=== PATIENT | female | born 1980 ===

== ENCOUNTER 2020-08-13 10:47 | Inpatient (IN) | payer MEDICAID, SELFPAY ==
[2020-08-13 10:50] VITALS: BP 135/67; PULSE 132; RESP 20; TEMP 37.1; O2SAT 99; BMI 33.3
--- NOTE | 2020-08-13 11:14 | ED_ITS ---
HPI - Psych General: Chief Complaint: Psychiatric Symptoms Stated Complaint: PSYCH EVAL Time Seen by Provider: 08/13/20 10:49 History of Present Illness: HPI Narrative: Patient is a 40-year-old female who comes to the ED for Covid screening and is going to be a direct admit to NPU. Patient said she has no current upper respiratory symptoms. She denies being around any known Covid positive patient. She denies any fever, shortness of breath, abdominal pain, nausea/vomiting, bladder or bowel symptoms sore throat, ear pain, nasal congestion or drainage, acute cough. Patient says she is a smoker and does have a chronic cough but denies any change in it and and its nonproductive. Review of Systems Const: Denies: fever(s), chills or fatigue Eyes: Denies: change in vision or eye discomfort ENMT: Denies: throat pain, odynophagia, nasal discharge or nasal congestion Card: Denies: chest pain, palpitations, edema, swelling of feet/ankles, dyspnea on exertion or orthopnea Resp: Reports: non-productive cough (chronic smokers cough); Denies: dyspnea or productive cough GI: Denies: abdominal pain, nausea, vomiting, diarrhea, constipation or hematochezia : Denies: flank pain, dysuria or hematuria Musc: Denies: neck pain, back pain or extremity swelling Skin/Breast: Denies: rash or new lesions Neuro: Denies: headache(s), numbness in extremities or weakness in extremities [facility] ED Female Reproductive History: Date of last menstrual period: 08/06/20 Physical Exam Const: COMMON NORMALS: no acute distress, patient oriented x3 and alert GENERAL APPEARANCE: cooperative and comfortable HENMT: COMMON NORMALS: normocephalic HEAD & SCALP: normocephalic MOUTH: Normal oral and palatal mucosa present THROAT: posterior oropharynx normal and uvula midline Neck/C-Spine: COMMON NORMALS: supple GENERAL: Yes normal visual inspection Resp: COMMON NORMALS: normal respiratory effort, No retractions, No use of accessory muscles and clear to auscultation bilaterally EFFORT & INSPECTION: Yes able to speak in complete sentences, No tachypneic, No respiratory distress and No labored AUSCULTATION: clear to auscultation bilaterally Cardio: COMMON NORMALS: regular rate, regular rhythm, S1 normal heart sound present, S2 normal heart sound present, No gallops present (Cardio), No clicks present (Cardio), No murmurs present (Cardio) and Peripheral pulses 2+ throughout RATE: regular rate RHYTHM: regular rhythm HEART SOUNDS: S1 normal heart sound present and S2 normal heart sound present PERIPHERAL PULSES: Peripheral pulses 2+ throughout GI: COMMON NORMALS: Normal to inspection, nondistended, normoactive bowel sounds present, Soft to palpation, non-tender and no masses PALPATION: Yes Soft to palpation : COMMON NORMALS: Yes no CVA tenderness BLADDER/KIDNEY EXAM: Yes no CVA tenderness Back/Pelvis: COMMON NORMALS: no CVA tenderness Extremity: COMMON NORMALS: normal to inspection and no pedal edema Neuro: COMMON NORMALS: patient oriented x3 and moves all extremities SENSORIUM/ORIENTATION: Yes alert Psych: ACTIVITY/MOTOR BEHAVIOR: Yes appropriate eye contact, Yes fidgeting and Yes hyperactivity Skin: GENERAL SKIN EXAM: dry skin MDM - Psych MDM Narrative: Medical decision making narrative: Patient is a 40-year-old female that comes to the ED via EMS as direct admit to NPU. Patient was brought in here to the ED to screen for COVID-19. Patient has had no exposure to known positive COVID-19 patient. She has no upper respiratory symptoms such as fever, chills, sore throat, nasal congestion/drainage acute cough or shortness of breath. Patient appears in good health and is showing no signs of any respiratory distress. Lungs are clear to auscultation bilaterally. Patient was cleared and orders were placed to have patient admitted to NPU by Dr. Mak. Discharge Plan Discharge Patient Disposition: Admitted As Inpatient Admit Provider: Harjinder Weems Discharge Date/Time: 08/13/20 11:46 Coding Level of Care Code ED Basketball Coach for Chg Fwd Exam Comprehensive
[2020-08-13 11:28] VITALS: BP 131/80; PULSE 109; RESP 20; TEMP 36.4; O2SAT 97
--- NOTE | 2020-08-13 12:23 | PC.NURSE ---
[facility] IN [place], [place] CONTACTED TO GET AN UPDATED MED LIST. PHONE #[phone]
--- NOTE | 2020-08-13 13:25 | PC.NURSE ---
meds verified with [facility] pharmacy. pt told this nurse that she was taking klonopin & pain meds, hydrocodone this nurse called pharmacy, they said she does not have an active script for Klonopin, Hydrocodone, or Tylenol #3. pt did have an active script for Tramadol 50 mg q8h prn.
[2020-08-13 14:00] VITALS: BP 124/83; PULSE 107; RESP 18; TEMP 36.9
[2020-08-13] MEDS: gabapentin 400 mg Capsule 800 MG PO ×2 (17:09→21:04)
[2020-08-13 19:28] VITALS: BMI 32.1
[2020-08-13 21:04] VITALS: BP 158/91
[2020-08-13] MEDS: levETIRAcetam 500 mg Tablet PO (21:04)
[2020-08-13] MEDS: quetiapine 100 mg Tablet 200 MG PO (21:04)
[2020-08-13] MEDS: cloNIDine 0.1 mg Tablet PO (21:04)
[2020-08-13] MEDS: PARoxetine 20 mg Tablet 40 MG PO (21:04)
[2020-08-13] MEDS: trazodone 100 mg Tablet 200 MG PO (21:04)
[2020-08-13] MEDS: ciprofloxacin 500 mg Tablet 750 MG PO (21:05)
[2020-08-13] MEDS: baclofen 10 mg Tablet 20 MG PO (21:09)
[2020-08-13] MEDS: TRAMadol 50 mg Tablet PO (21:09)
--- NOTE | 2020-08-13 21:10 | PC.NURSE ---
PRN TRAMADOL & BACLOFEN ADMINISTERED BACLOFEN 20MG PO & TRAMADOL 50MG PO PER PT REQUEST. PT STATES THIS IS A MEDICATION SHE TAKES ON A DAILY BASIS FOR BILATERAL FOOT AND LOWER BACK PAIN, WILL MONITOR FOR MEDICATION EFFECTIVENESS.
[2020-08-13 21:57] VITALS: BP 158/91; PULSE 122; RESP 19; TEMP 36.4; O2SAT 97
[2020-08-14 06:00] VITALS: BP 138/74; PULSE 62; RESP 15; TEMP 36.4; O2SAT 95
[2020-08-14 08:30] VITALS: BP 138/74
[2020-08-14] MEDS: cloNIDine 0.1 mg Tablet PO ×2 (08:30→20:36)
[2020-08-14] MEDS: rivaroxaban 10 mg Tablet 20 MG PO (08:30)
[2020-08-14] MEDS: fluconazole 100 mg Tablet PO (08:30)
[2020-08-14] MEDS: lisinopril 20 mg Tablet PO (08:30)
[2020-08-14] MEDS: metformin 500 mg Tablet PO (08:30)
[2020-08-14] MEDS: gabapentin 400 mg Capsule 800 MG PO ×4 (08:31→20:36)
[2020-08-14] MEDS: levETIRAcetam 500 mg Tablet PO ×2 (08:31→20:37)
[2020-08-14] MEDS: metoprolol succinate ER (24 HR) 25 mg Tablet PO (08:31)
[2020-08-14] MEDS: ciprofloxacin 500 mg Tablet 750 MG PO ×2 (08:31→20:37)
[2020-08-14] MEDS: amlodipine 10 mg Tablet PO (08:31)
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
[2020-08-14 11:00] VITALS: PULSE 89; RESP 16; O2SAT 93
[2020-08-14 14:00] VITALS: BP 108/88; PULSE 93; RESP 18; TEMP 36.8
[2020-08-14] MEDS: hyDROXYzine 25 mg Capsule 50 MG PO (17:07)
[2020-08-14 19:56] VITALS: BP 110/71; PULSE 76; RESP 20; TEMP 36.2; O2SAT 98
[2020-08-14 20:36] VITALS: BP 110/71
[2020-08-14] MEDS: trazodone 100 mg Tablet 200 MG PO (20:37)
[2020-08-14] MEDS: PARoxetine 20 mg Tablet 40 MG PO (20:37)
[2020-08-14] MEDS: quetiapine 100 mg Tablet 200 MG PO (20:38)
[2020-08-15 06:00] VITALS: BP 100/56; PULSE 63; RESP 20; TEMP 36.4; O2SAT 96
[2020-08-15 08:08] VITALS: PULSE 63; RESP 16; O2SAT 98
[2020-08-15] MEDS: rivaroxaban 10 mg Tablet 20 MG PO (08:21)
[2020-08-15] MEDS: gabapentin 400 mg Capsule 800 MG PO ×4 (08:21→20:36)
[2020-08-15] MEDS: levETIRAcetam 500 mg Tablet PO ×2 (08:21→20:37)
[2020-08-15] MEDS: fluconazole 100 mg Tablet PO (08:21)
[2020-08-15 08:22] VITALS: BP 100/56
[2020-08-15] MEDS: amlodipine 10 mg Tablet PO (08:22)
[2020-08-15] MEDS: metformin 500 mg Tablet PO (08:22)
[2020-08-15] MEDS: metoprolol succinate ER (24 HR) 25 mg Tablet PO (08:22)
[2020-08-15] MEDS: cloNIDine 0.1 mg Tablet PO ×2 (08:22→20:36)
[2020-08-15] MEDS: lisinopril 20 mg Tablet PO (08:22)
[2020-08-15] MEDS: ciprofloxacin 500 mg Tablet 750 MG PO ×2 (08:22→20:35)
--- NOTE | 2020-08-15 10:53 | PC.RESP ---
SMOKING CESSATION INFORMATION SENT TO PATIENT.
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
[2020-08-15 13:55] VITALS: BP 101/65; PULSE 69; RESP 18; TEMP 36.3; O2SAT 94
[2020-08-15] MEDS: TRAMadol 50 mg Tablet PO (13:55)
[2020-08-15 19:57] VITALS: BP 103/65; PULSE 73; RESP 17; TEMP 36.3; O2SAT 98
[2020-08-15 20:36] VITALS: BP 103/65
[2020-08-15] MEDS: trazodone 100 mg Tablet 200 MG PO (20:36)
[2020-08-15] MEDS: quetiapine 100 mg Tablet 200 MG PO (20:36)
[2020-08-15] MEDS: PARoxetine 20 mg Tablet 40 MG PO (20:37)
[2020-08-16 06:00] VITALS: BP 91/59; PULSE 61; RESP 15; TEMP 36.1; O2SAT 95
[2020-08-16 08:04] VITALS: PULSE 81; RESP 14; O2SAT 99
[2020-08-16] MEDS: rivaroxaban 10 mg Tablet 20 MG PO (08:18)
[2020-08-16] MEDS: levETIRAcetam 500 mg Tablet PO (08:19)
[2020-08-16] MEDS: amlodipine 10 mg Tablet PO (08:19)
[2020-08-16] MEDS: gabapentin 400 mg Capsule 800 MG PO ×2 (08:19→11:49)
[2020-08-16 08:20] VITALS: BP 91/59
[2020-08-16] MEDS: cloNIDine 0.1 mg Tablet PO (08:20)
[2020-08-16] MEDS: fluconazole 100 mg Tablet PO (08:20)
[2020-08-16] MEDS: metformin 500 mg Tablet PO (08:20)
[2020-08-16] MEDS: metoprolol succinate ER (24 HR) 25 mg Tablet PO (08:20)
[2020-08-16] MEDS: lisinopril 20 mg Tablet PO (08:21)
[2020-08-16] MEDS: ciprofloxacin 500 mg Tablet 750 MG PO (08:21)
[2020-08-16 09:52] VITALS: BP 91/59
[2020-08-16] MEDS: TRAMadol 50 mg Tablet PO (11:49)
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
== END 2020-08-16 15:14 | disposition home or self-care (01) | DRG 880 ==
LOC: ER 11:36 → NP 11:41
PROVIDERS: Admitting Provider Psychiatry & Neurology Psychiatry; Emergency Provider Physician Assistant; Visit Provider Psychiatry & Neurology Psychiatry
DX: F41.9 Anxiety disorder, unspecified (principal); G89.4 Chronic pain syndrome; G40.909 Epilepsy, unspecified, not intractable, without status epilepticus; F43.12 Post-traumatic stress disorder, chronic; Z87.820 Personal history of traumatic brain injury; F17.210 Nicotine dependence, cigarettes, uncomplicated; F31.9 Bipolar disorder, unspecified; F12.20 Cannabis dependence, uncomplicated; Z79.01 Long term (current) use of anticoagulants
CPT/HCPCS: 12345; 99284